=== PATIENT | female | born 1980 | race Caucasian/White ===

== ENCOUNTER 2020-08-13 19:40 | Emergency (ER) | payer BC, OTHER ==
[~2020-08-13] VITALS: Ht 165.1 cm; Wt 74.3 kg
[2020-08-13 19:50] VITALS: BP 166/93
[2020-08-13] MEDS ORDERED: LIDOCAINE 1% Multi-Dose 20 ML VIAL. IJ ONE (20:30)
[2020-08-13] MEDS ORDERED: CEPH500T PO (20:40)
--- NOTE | 2020-08-13 20:41 | PHYS DOC ---
Past History Past Medical History: No Pertinent History, Other (LINDA GTZ APRN) Past Surgical History: Cholecystectomy, , Tonsillectomy, Other (LINDA GTZ APRN) Alcohol Use: None Drug Use: None (LINDA GTZ APRN) General Adult EDM: Chief Complaint: LACERATION/AVULSION HPI: HPI: Patient is a 40-year-old female who presents to the emergency department with complaints of a laceration to the lateral aspect of her right index finger. Patient states she was using a razor blade to clean paint off of another razor blade when she accidentally cut into her right index finger. She denies any decreased sensation, numbness, tingling, or decreased movement of the affected digit. Patient reports her last tetanus shot was in 2018. She currently rates pain a 2 out of 10 on pain scale, she denies any alleviating factors, the pain is worse with palpation and movement. (LINDA GTZ APRN) Review of Systems: Review of Systems: Complete ROS is negative unless otherwise noted in HPI. (LINDA GTZ APRN) Current Medications: Current Meds: Current Medications Medications (Trade) Dose Ordered Sig/Nash Start Time Stop Time Status Last Admin Dose Admin Lidocaine HCl 20 ml 1X ONCE 08/13/20 20:30 08/13/20 20:31 DC 08/13/20 20:22 20 ML (LINDA GTZ APRN) Allergies: Allergies: Allergies Coded Allergies Type Severity Reaction Last Updated Verified No Known Drug Allergies 07/15/14 No (LINDA GTZ APRN) Physical Exam: PE: See Above Constitutional: Well developed, well nourished, no acute distress, non-toxic appearance. [] HENT: Normocephalic, atraumatic, bilateral external ears normal, nose normal. [] Eyes: PERRLA, EOMI, conjunctiva normal, no discharge. [] Neck: Normal range of motion, no stridor. [] Cardiovascular:Heart rate regular rhythm Lungs & Thorax: Respirations even and unlabored, no retractions, no respiratory distress Skin: Warm, dry, no erythema, no rash; 1.5 cm laceration distal to the DIP on the lateral aspect of the right index finger, no visible foreign body, bleeding controlled with direct pressure held in place. [] Extremities: Right index finger: Full extension and flexion, good strength, cap refill less than 2 seconds, no cyanosis, ROM intact, no edema. [] Neurologic: Alert and oriented X 3, no focal deficits noted. [] Psychologic: Affect normal, judgement normal, mood normal. [] (LINDA GTZ APRN) Current Patient Data: Vital Signs: Vital Signs Date Time Temp Pulse Resp B/P (MAP) Pulse Ox O2 Delivery O2 Flow Rate FiO2 08/13/20 19:50 97.8 104 16 166/93 (117) 98 Room Air (LINDA GTZ APRN) EKG: EKG: [] (LINDA GTZ APRN) Radiology/Procedures: Radiology/Procedures: Laceration Repair by me: Anesthesia: 1% lidocaine locally Location: Right index finger Tendon/Joint/Nerves: No injury Foreign body: None detected after copious irrigation and exploration with sterile water and chlorhexidine Technique: 4 simple Interrupted Sutures with 4-0 Ethilon Complexity: No subcutaneous sutures/mucosal repair/edge excision Post Closure Length: 1.5 cm Patient's bleeding was easily controlled in the department and there is no indication of anemia. No evidence of compartment syndrome, neurologic injury, vascular injury, open joint, tendon laceration, or foreign body. Patient is appropriate for outpatient follow up. (LINDA GTZ APRN) Heart Score: Risk Factors: Risk Factors: DM, Current or recent (<one month) smoker, HTN, HLP, family history of CAD, obesity. Risk Scores: Score 0 - 3: 2.5% MACE over next 6 weeks - Discharge Home Score 4 - 6: 20.3% MACE over next 6 weeks - Admit for Clinical Observation Score 7 - 10: 72.7% MACE over next 6 weeks - Early Invasive Strategies (LINDA GTZ APRN) Course & Med Decision Making: Course & Med Decision Making Pertinent Labs and Imaging studies reviewed. (See chart for details) [] (LINDA GTZ APRN) Dragon Disclaimer: Dragon Disclaimer: This electronic medical record was generated, in whole or in part, using a voice recognition dictation system. (LINDA GTZ APRN) Attending Co-Sign I oversaw on the above date of service of this patient and discussed the care with the FOOD TASTER. I agree with the findings, plan of care, and disposition as documented. (LEE MCGEE DO) Departure Departure: Impression: Primary Impression: Laceration of finger of right hand without foreign body without damage to nail Qualified Codes: S61.210A - Laceration without foreign body of right index finger without damage to nail, initial encounter Disposition: 01 DC HOME SELF CARE/HOMELESS Condition: STABLE Referrals: BECK PRUETT (PCP) Patient Instructions: Laceration Care, Adult, [id number] Additional Instructions: Fill the prescription and use it as directed. Keep the area clean and dry. You may take Tylenol or ibuprofen as needed for pain. Keep the dressing that was placed today on for 24 hours then change the dressing twice a day and apply antibiotic ointment to the area. Follow-up with your primary care doctor, or return to the emergency room in 10-14 days to have the sutures removed, sooner if you develop signs of infection including: redness, warmth, drainage, or a fever. Scripts Cephalexin (CEPHALEXIN) 500 Mg Tablet 1 TAB PO TID for laceration for 7 Days, #21 TAB 0 Refills Prov: LINDA GTZ APRN 08/13/20 LINDA GTZ APRN Aug 13, 2020 20:41 LEE MCGEE DO Aug 14, 2020 02:42
== END 2020-08-13 20:41 | disposition home or self-care (01) ==
LOC: ER 19:40
DX: S61.210A Laceration without foreign body of right index finger without damage to nail, initial encounter (principal); W26.8XXA Contact with other sharp object(s), not elsewhere classified, initial encounter; Y93.89 Activity, other specified; Y92.89 Other specified places as the place of occurrence of the external cause; Y99.8 Other external cause status
CPT/HCPCS: 12001; 99283